=== PATIENT | female | born 1980 | race Caucasian/White ===

== ENCOUNTER 2018-04-29 08:21 | Outpatient (CLI) | payer BC ==
--- NOTE | 2018-04-29 11:08 | RAD ---
UPPER GI AIR CONTRAST: Exposure: Fluoro time 0.2 minutes, 71.16 mGy*cm^2. FINDINGS: Supine abdomen radiographic demonstrates surgical clips in the right upper quadrant, consistent with cholecystectomy. Nonspecific bowel gas pattern. The thoracic esophagus has an overall normal course and caliber. No mucosal abnormality. A small hiat al hernia without evidence of reflux during intermittent fluoroscopy. Gastric mucosa has a normal appearance. No masses or filling defect. Post procedure supine and upright abdomen radiograph demonstrates contrast opacifying in normal appea ring stomach and multiple small bowel loops. IMPRESSION: Small hiatal hernia. No evidence of reflux during intermittent fluoroscopy. POS: [facility]
== END 2018-04-29 08:22 | disposition home or self-care (01) ==
LOC: RAD 08:21
DX: Z13.810 Encounter for screening for upper gastrointestinal disorder (principal); K21.9 Gastro-esophageal reflux disease without esophagitis; K44.9 Diaphragmatic hernia without obstruction or gangrene
CPT/HCPCS: 74247

== ENCOUNTER 2024-10-08 13:36 | Outpatient (CLI) | payer BC | END 2024-10-08 13:37 | disposition home or self-care (01) | LOC: BICMAMMO 13:36 | PROVIDERS: ATTEND Obstetrics & Gynecology | DX: R92.8 Other abnormal and inconclusive findings on diagnostic imaging of breast (principal) | CPT/HCPCS: G0279 ==